=== PATIENT | male | born 1965 | race Caucasian/White ===

== ENCOUNTER 2016-10-31 23:14 | Emergency (ER) | payer OTHER ==
[2016-10-31 23:38] VITALS: BP 143/84
[2016-10-31] MEDS ORDERED: Albuterol/Ipratropium 3.0-0.5 MG/3 ML Neb Soln NEB ONE (23:57)
--- NOTE | 2016-11-01 00:01 | EDM.PDOC ---
ED HPI GENERAL MEDICAL PROBLEM - General Chief Complaint: General Stated Complaint: COUGHS UNTIL HE PASSES OUT Time Seen by Provider: 10/31/16 23:17 Source of Information: Reports: Patient History Limitations: Reports: No limitations - History of Present Illness INITIAL COMMENTS - FREE TEXT/NARRATIVE: This is a 50-year-old male he's been having a cough for the last week. In the last 24 hours he has developed coughing spells such that he lose his breath and he passes out momentarily. Tonight when he passed out from a coughing spell he and had little bit of shaking of his arms and legs but once the coughing spell stopped he was aware what was going on and everything was back to normal. The brief moment of passing out was perhaps 10 or 15 seconds with the shaking spell. He has not been exposed to whooping cough that he is aware of. He does have some mild sinus drainage that is clear. His cough is mostly dry and he does cough anything up the phlegm is clear as well. He denies any wheezing that he knows of and he feels like he is breathing okay but he has a tickle in the back of his throat that makes him cough. No fever no chills no nausea vomiting or diarrhea. Treatments [employer]: Reports: Other (see below) Other Treatments [employer]: sin-ease - Related Data Allergies Allergy/AdvReac Type Severity Reaction Status Date / Time No Known Allergies Allergy Verified 10/31/16 23:38 Home Meds: Home Meds Non-Formulary Medication [NF Drug] 1 tab PO DAILY 10/31/16 [History] Albuterol [IMW: Ventolin HFA] 2 puff INH TID PRN #18 gm 11/01/16 [Rx] Azithromycin [Zithromax] 250 mg PO DAILY #6 tablet 11/01/16 [Rx] Benzonatate [Tessalon Perles] 200 mg PO TID PRN #20 cap 11/01/16 [Rx] Past Medical History Cardiovascular History: Reports: Hypertension Social & Family History - Family History Family Medical History: Noncontributory - Tobacco Use Smoking Status *Q: Current Some Day Smoker Years of Tobacco use: 1 Packs/Tins Daily: 0.1 - Recreational Drug Use Recreational Drug Use: No ED ROS GENERAL - Review of Systems Review Of Systems: See Below Constitutional: Denies: fever, chills HEENT: Denies: Throat pain, Throat swelling Respiratory: Reports: Cough. Denies: Shortness of Breath Cardiovascular: Denies: Chest pain Endocrine: Reports: no symptoms GI/Abdominal: Denies: Abdominal pain, Nausea, Vomiting : Reports: no symptoms Musculoskeletal: Reports: no symptoms Skin: Reports: no symptoms Neurological: Reports: No Symptoms Psychiatric: Reports: No symptoms ED EXAM, GENERAL - Physical Exam Exam: See Below Exam Limited By: No limitations General Appearance: alert, WD/WN, no apparent distress Ears: normal external exam, normal canal, normal TMs Nose: normal inspection, clear rhinorrhea Throat/Mouth: Normal lips, Normal oropharynx, Normal voice, No airway compromise Head: normocephalic Neck: supple Respiratory/Chest: no respiratory distress, lungs clear, normal breath sounds Cardiovascular: regular rate, rhythm, no murmur GI/Abdominal: soft, other (Patient is obese) Back Exam: full range of motion Extremities: normal inspection, normal range of motion Neurological: alert, oriented Psychiatric: normal affect, normal mood Skin Exam: Warm, Dry Course - Vital Signs Last Recorded V/S: Last Vital Signs Temp 96.7 F 10/31/16 23:35 Pulse 73 10/31/16 23:35 Resp 16 10/31/16 23:35 BP 143/84 H 10/31/16 23:35 Pulse Ox 97 11/01/16 00:04 - Orders/Labs/Meds Orders: Active Orders 24 hr Category Date Time Status RT Aerosol Therapy [RC] ASDIRECTED Care 10/31/16 23:57 Active B. PERTUSSIS ABS, IGA, IGG,IGM [REF] Stat Lab 10/31/16 23:57 Received Meds: Medications Discontinued Medications Generic Name Dose Route Start Last Admin Trade Name Freq PRN Reason Stop Dose Admin Albuterol/Ipratropium 3 ml 10/31/16 23:57 11/01/16 00:04 Duoneb 3.0-0.5 Mg/3 Ml NEB 10/31/16 23:58 3 ml ONETIME ONE Administration - Re-Assessments/Exams Free Text/Narrative Re-Assessment/Exam: 11/01/16 00:38 After the DuoNeb the patient states he felt like his lungs opened up and he now has a mild productive cough. Departure - Departure Time of Disposition: 00:38 Disposition: Home, Self-Care 01 Condition: good Clinical Impression: Upper respiratory infection Qualifiers: URI type: unspecified URI Qualified Code(s): J06.9 - Acute upper respiratory infection, unspecified Acute bronchitis Qualifiers: Bronchitis organism: unspecified organism Qualified Code(s): J20.9 - Acute bronchitis, unspecified Reactive airway disease Qualifiers: Asthma severity: mild intermittent Asthma complication type: uncomplicated Qualified Code(s): J45.20 - Mild intermittent asthma, uncomplicated Prescriptions: Albuterol [IMW: Ventolin HFA] 2 puff INH TID PRN #18 gm PRN Reason: Wheezing Azithromycin [Zithromax] 250 mg PO DAILY #6 tablet Benzonatate [Tessalon Perles] 200 mg PO TID PRN #20 cap PRN Reason: Cough Forms: ED Department Discharge Additional Instructions: Start the antibiotics tomorrow, use the inhaler when you feel like your lungs are tight as prescribed, use the Tessalon pearls faithfully 3 times a day to help with your cough, just be aware that if you start a coughing spell be some place safe since you might pass out, be certain to drink lots of fluids so that your secretions and drainage are thin and not real thick the thick secretions are hard to expel and makes the coughing spells worse, followup with your doctor next week or return to the ER if your symptoms worsen - My Orders Last 24 Hours: My Active Orders 10/31/16 23:57 RT Aerosol Therapy [RC] ASDIRECTED B. PERTUSSIS ABS, IGA, IGG,IGM [REF] Stat - Assessment/Plan Last 24 Hours: My Active Orders 10/31/16 23:57 RT Aerosol Therapy [RC] ASDIRECTED B. PERTUSSIS ABS, IGA, IGG,IGM [REF] Stat
== END 2016-11-01 01:00 | disposition home or self-care (01) ==
LOC: JD.ED 23:14
DX: J45.20 Mild intermittent asthma, uncomplicated (principal); J06.9 Acute upper respiratory infection, unspecified; J20.9 Acute bronchitis, unspecified; I10 Essential (primary) hypertension; F17.210 Nicotine dependence, cigarettes, uncomplicated; Z79.899 Other long term (current) drug therapy
CPT/HCPCS: 36415; 86615; 94664; 99284; 99285-25